=== PATIENT | female | born 2000 | race Caucasian/White ===

== ENCOUNTER 2022-04-23 02:10 | Emergency (ER) | payer OTHER ==
[~2022-04-23] VITALS: Ht 160 cm; Wt 99.3 kg
[2022-04-23 02:10] VITALS: BP 130/73
--- NOTE | 2022-04-23 02:10 | NUR ---
TO LOBBY A/W BED AMBULATORY
--- NOTE | 2022-04-23 04:31 | NUR ---
Dr. Cavanaugh examining patient.
--- NOTE | 2022-04-23 04:45 | NUR ---
COVID-19 and flu swabs collected and sent to lab.
[2022-04-23] MEDS ORDERED: IBUP-1842 PO (06:05)
[2022-04-23] MEDS ORDERED: BENZ150C2 PO (06:05)
[2022-04-23 06:15] VITALS: BP 122/73
--- NOTE | 2022-04-23 06:15 | NUR ---
Patient discharged with v/s stable. Written and verbal after care instructions given and explained for Viral Respiratory Infection. Patient alert, oriented and verbalized understanding of instructions. Ambulatory with steady gait. All questions addressed prior to discharge. ID band removed. Patient advised to follow up with PMD. Rx of Ibuprofen and Benzobatate given. Patient educated on indication of medication including possible reaction and side effects. Opportunity to ask questions provided and answered.
== END 2022-04-23 06:15 | disposition home or self-care (01) ==
LOC: MED 02:10
DX: B34.9 Viral infection, unspecified (principal); Z20.822 Contact with and (suspected) exposure to COVID-19; J06.9 Acute upper respiratory infection, unspecified; Z88.5 Allergy status to narcotic agent
CPT/HCPCS: 81002; 81025; 99283